=== PATIENT | male | born 1970 | race Caucasian/White ===

== ENCOUNTER 2024-02-26 13:17 | Emergency (ER) | payer BC ==
[~2024-02-26] VITALS: Ht 175.3 cm; Wt 81.1 kg
[2024-02-26 13:33] VITALS: TEMP 97.2
[2024-02-26 14:03] LABS: BASO % 0.3 % (0.0-1.0); EOS # 0.1 10^3/uL (0.0-0.5); EOS % 1.4 % (0.0-3.0); HEMATOCRIT 42.8 % (42.0-52.0); HEMOGLOBIN 14.9 g/dl (13.5-17.5); LYMPH # 1.3 10^3/uL (1.5-5.0); LYMPH % 16.6 % (24.0-44.0); MEAN CORPUSCULAR HEMOGLOBIN 31.9 pg (27.0-33.0); MEAN CORPUSCULAR HGB CONC 34.8 g/dl (32.0-36.5); MEAN CORPUSCULAR VOLUME 91.6 fl (80.0-96.0); MONO # 0.7 10^3/uL (0.0-0.8); MONO % 8.7 % (2.0-8.0); NEUTROPHILS # 5.5 10^3/uL (1.5-8.5); PLATELET COUNT, AUTOMATED 215 10^3/uL (150-450); RED BLOOD COUNT 4.67 10^6/uL (4.30-6.10); WHITE BLOOD COUNT 7.7 10^3/uL (4.0-10.0)
[2024-02-26 14:09] LABS: LIPASE 41 U/L (12-53)
[2024-02-26] MEDS ORDERED: ISOVUE-370 76% 100ML VIAL As Ordered ONE (14:09)
[2024-02-26 14:10] LABS: CK-MB VALUE MASS 8.5 NG/ML (<3.6)
[2024-02-26 14:11] LABS: AMYLASE 85 U/L (30-118)
[2024-02-26 14:12] LABS: ALBUMIN 4.3 G/DL (3.2-5.2); ALKALINE PHOSPHATASE 47 U/L (46-116); ALT/SGPT 38 U/L (7.0-40); AST/SGOT 42 U/L (<34); BILIRUBIN,DIRECT 0.4 MG/DL (<0.4); BILIRUBIN,TOTAL 1.5 MG/DL (0.3-1.2); BLOOD UREA NITROGEN 16 MG/DL (9-23); CALCIUM LEVEL 9.1 MG/DL (8.5-10.1); CARBON DIOXIDE LEVEL 27 MMOL/L (20-31); CHLORIDE LEVEL 106 MMOL/L (98-107); CREATININE FOR GFR 0.91 MG/DL (0.70-1.30); GLOMERULAR FILTRATION RATE > 60.0 (>56); GLUCOSE, FASTING 102 MG/DL (60-100); POTASSIUM SERUM 4.3 MMOL/L (3.5-5.1); SODIUM LEVEL 138 MMOL/L (136-145); TOTAL PROTEIN 7.2 G/DL (5.7-8.2)
[2024-02-26 14:14] LABS: CPK CREATINE PHOSPHOKINASE 582 U/L (46-171); MB/CK RELATIVE INDEX 1.46 (< OR =4)
[2024-02-26] MEDS: LIDOCAINE W/EPINEPHRINE 1% 20ML VIAL SC ONE (14:15)
[2024-02-26] MEDS: BOOSTRIX VACCINE (TETANUS/DIPHTH/ACEL. PERTUSSIS) 0.5ML SYR IM.IMMUN ONE (14:49)
[2024-02-26 16:15] VITALS: BP 135/75; O2SAT 100
== END 2024-02-26 16:22 | disposition short-term general hospital (02) ==
LOC: EDBD 13:17 → M ED 13:17
DX: S01.01XA Laceration without foreign body of scalp, initial encounter (principal); S22.088A Other fracture of T11-T12 vertebra, initial encounter for closed fracture; S32.018A Other fracture of first lumbar vertebra, initial encounter for closed fracture; Y92.9 Unspecified place or not applicable; Y93.9 Activity, unspecified; Y99.9 Unspecified external cause status; W17.89XA Other fall from one level to another, initial encounter; Z23 Encounter for immunization
CPT/HCPCS: 12001; 70450; 71260; 72125; 72128; 72131; 74177; 80047; 80048; 80076; 82150; 82550; 82553; 83690; 84484; 85025; 86850; 86900; 86901; 90471; 90715; 93041; 94760; 99285; Q9967